=== PATIENT | female | born 2005 | race Hispanic/Latino ===

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

== ENCOUNTER 2025-04-27 11:04 | Outpatient (CLI) | payer MEDICAID | END 2025-04-27 11:05 | disposition home or self-care (01) | LOC: ULT 11:04 | PROVIDERS: ATTEND Family Medicine | DX: Z34.02 Encounter for supervision of normal first pregnancy, second trimester (principal); Z3A.21 21 weeks gestation of pregnancy | CPT/HCPCS: 76805 ==